=== PATIENT | female | born 1960 | race Caucasian/White ===

== ENCOUNTER 2017-06-01 16:31 | Inpatient (IN) | payer OTHER ==
[2017-06-01 18:14] VITALS: BMI 24.5
--- NOTE | 2017-06-01 20:28 | HP ---
CIWA Score - CIWA Score Nausea/Vomitin (vomiting x 3) Muscle Tremors: 4-Moderate,w/Arms Extend Anxiety: 4-Mod. Anxious/Guarded Agitation: 2 Paroxysmal Sweats: 3 Orientation: 0-Oriented Tacttile Disturbances: 0-None Auditory Disturbances: 0-None Visual Disturbances: 0-None Headache: 3-Moderate CIWA-Ar Total Score: 19 Admission ROS BHS - HPI Chief Complaint: Alcohol withdrawal symptoms Allergies/Adverse Reactions: Allergies Allergy/AdvReac Type Severity Reaction Status Date / Time No Known Allergies Allergy Verified 06/01/17 20:21 History of Present Illness: 57 years old female with a long history of alcohol dependence is admitted to detox. Patient states that he has never been in detox and reports insignificant period of sobriety. She has medical history of COPD, asthma, anemia, seizure, HTN, anxiety and depression. She reports suicide attempt at 30 years old but denies suicidal ideation at this time. Patient states, "my goal is to be sober and productive." Exam Limitations: No Limitations - Ebola screening Have you traveled outside of the country in the last 21 days: No Have you had contact with anyone from an Ebola affected area: No Have you been sick,other than usual withdrawal symptoms: No Do you have a fever: No - Review of Systems Constitutional: Chills, Diaphoresis, Loss of Appetite, Night Sweats, Changes in sleep, Weakness EENT: reports: Nose Congestion, Sinus Pressure Respiratory: reports: Cough (Non productive) Cardiac: reports: No Symptoms Reported GI: reports: Diarrhea (x 5), Poor Appetite, Vomiting (x 3) : reports: No Symptoms Reported Musculoskeletal: reports: Muscle Pain, Muscle Weakness Integumentary: reports: Dryness, Flushing, Sweating Endocrine: reports: No Symptoms Reported Hematology: reports: Anemia Psychiatric: reports: Orientated x3, Agitated, Anxious, Depressed Other Systems: Reviewed and Negative Patient History - Patient Medical History Hx Anemia: Yes Hx Asthma: Yes Hx Chronic Obstructive Pulmonary Disease (COPD): Yes Hx Cancer: No Hx Cardiac Disorders: No Hx Congestive Heart Failure: No Hx Hypertension: Yes Hx Hypercholesterolemia: No Hx Pacemaker: No HX Cerebrovascular Accident: No Hx Seizures: Yes (YEAR 2001) Hx Diabetes: No Hx Gastrointestinal Disorders: No Hx Liver Disease: No Hx Genitourinary Disorders: No Hx Sexually Transmitted Disorders: No Hx Renal Disease (ESRD): No Hx Thyroid Disease: No Hx Human Immunodeficiency Virus (HIV): No (Negative 2016) Hx Hepatitis C: No (Negative 2016) Hx Depression: Yes Hx Suicide Attempt: Yes (AT AGE OF 30) Hx Bipolar Disorder: No Hx Schizophrenia: No - Patient Surgical History Past Surgical History: Yes Hx Neurologic Surgery: No Hx Cataract Extraction: No Hx Cardiac Surgery: No Hx Lung Surgery: No Hx Breast Surgery: No Hx Breast Biopsy: No Hx Abdominal Surgery: No Hx Appendectomy: Yes (at 30 years old) Hx Cholecystectomy: Yes (1994) Hx Genitourinary Surgery: No Hx Section: Yes (1982) Hx Orthopedic Surgery: No Hx Hysterectomy: No Anesthesia Reaction: No - PPD History Previous Implant?: No Implanted On Prior R Admission?: No PPD to be Administered?: Yes - Reproductive History Patient is a Female of Child Bearing Age (11 -55 yrs old): Yes LMP comment: Last menstrual Period was 15 years ago Patient : No - Smoking Cessation Smoking history: Current every day smoker Have you smoked in the past 12 months: Yes Aproximately how many cigarettes per day: 1 Hx Chewing Tobacco Use: No Initiated information on smoking cessation: Yes 'Breaking Loose' booklet given: 06/01/17 - Substance & Tx. History Hx Alcohol Use: Yes Hx Substance Use: No Hx Substance Use Treatment: No - Substances Abused Alcohol Route: Oral Frequency: Daily Amount used: 4 PINT OF VODKA Age of first use: 9 Date of Last Use: 06/01/17 Family Disease History - Family Disease History Family Disease History: Heart Disease: Father (SKIN CA), Mother (COLON CA), Brother, CA: Father, Mother, Respiratory: Grandparent ( G/F COPD, LUNG CA - ) Admission Physical Exam S - Vital Signs Vital Signs: Vital Signs - 24 hr 06/01/17 18:10 Temperature 96.7 F L Pulse Rate 122 H Respiratory 19 Rate Blood Pressure 133/74 - Physical General Appearance: Yes: Moderate Distress, Tremorous, Irritable, Sweating, Anxious HEENTM: Yes: BUFFY, Nasal Congestion, Sinus Tenderness Respiratory: Yes: No Respiratory Distress, Wheezing Neck: Yes: Supple Breast: Yes: Breast Exam Deferred Cardiology: Yes: Regular Rhythm, Regular Rate, S1, S2 Abdominal: Yes: Within Normal Limits Genitourinary: Yes: Within Normal Limits Back: Yes: Normal Inspection Musculoskeletal: Yes: Muscle Pain, Muscle weakness Extremities: Yes: Tremors Neurological: Yes: Within Normal Limits, Alert, Normal Response Integumentary: Yes: Warm Lymphatic: Yes: Within Normal Limits - Diagnostic (1) Alcohol dependence with uncomplicated withdrawal Current Visit: Yes Status: Chronic (2) COPD (chronic obstructive pulmonary disease) Current Visit: Yes Status: Chronic (3) Asthma Current Visit: Yes Status: Chronic (4) HTN (hypertension) Current Visit: Yes Status: Chronic (5) Anemia Current Visit: Yes Status: Chronic Qualifiers: Anemia type: iron deficiency (6) Anxiety Current Visit: Yes Status: Chronic (7) Depression Current Visit: Yes Status: Acute Qualifiers: Depression Type: unspecified Qualified Code(s): F32.9 - Major depressive disorder, single episode, unspecified (8) Seizure Current Visit: Yes Status: Chronic (9) Nicotine dependence Current Visit: Yes Status: Chronic Cleared for Admission S - Detox or Rehab [facility] Level of Care: Medically Managed Detox Regimen/Protocol: Librium S Breath Alcohol Content Breath Alcohol Content: 0 Urine Pregancy Test - Result Urine Test Results: Negative- NO Line Present Urine Drug Screen - Results Drug Screen Negative: No Urine Drug Screen Results: BZO-Benzodiazepines
[2017-06-01] MEDS ORDERED: IBUPROFEN 400 MG TABLET (FP) PO PRN (20:46)
[2017-06-01] MEDS ORDERED: ACETAMINOPHEN 325 MG TABLET (FP) PO PRN (20:46)
[2017-06-01] MEDS ORDERED: MENTHOL/PHENOL 1 EACH UD MM PRN (20:46)
[2017-06-01] MEDS ORDERED: MAGNESIUM CITRATE 300 ML BOTTLE PO PRN (20:46)
[2017-06-01] MEDS ORDERED: P-EPHED 60MG/TRIPROLIDI 2.5MG TABLET PO PRN (20:46)
[2017-06-01] MEDS ORDERED: LOPERAMIDE HCL 2 MG CAPSULE PO PRN (20:46)
[2017-06-01] MEDS ORDERED: MAGNESIUM HYDROX 2400MG/30ML ORAL SUSPENSION 30 ML CUP PO PRN (20:46)
[2017-06-01] MEDS ORDERED: NICOTINE POLACRILEX 2 MG GUM BC PRN (20:46)
[2017-06-01] MEDS ORDERED: guaiFENesin/D-METHORPHAN HB 10 ML UNIT-DOSE CUPS PO PRN (20:46)
[2017-06-01] MEDS ORDERED: MAG HYDROX/AL HYDROX/SIMETH 30 ML UNIT-DOSE CUP PO PRN (20:46)
[2017-06-01] MEDS ORDERED: chlordiazePOXIDE HCL 25 MG CAPSULE PO PRN (20:46)
[2017-06-01] MEDS: chlordiazePOXIDE HCL 25 MG CAPSULE PO SCH (22:12)
[2017-06-01] MEDS: THIAMINE HCL 100 MG TABLET (FP) PO SCH (22:13)
[2017-06-02 00:27] LABS: URINE APPEARANCE CLOUDY; URINE BLOOD 1+ (NEGATIVE); URINE COLOR AMBER; URINE GLUCOSE (UA) 1+ (NEGATIVE); URINE KETONE 1+ (NEGATIVE); URINE LEUK ESTERASE NEGATIVE (NEGATIVE); URINE NITRITE NEGATIVE (NEGATIVE); URINE UROBILINOGEN 4.0 E.U/dl mg/dL (0.2-1.0)
[2017-06-02 00:30] LABS: URINE PROTEIN 2+ (NEGATIVE)
[2017-06-02 00:38] LABS: EPI CELLS MANY /HPF (FEW); URINE BACTERIA RARE /hpf (NONE SEEN); URINE HYALINE CAST 129 /lpf; URINE MUCUS MANY
[2017-06-02] MEDS: chlordiazePOXIDE HCL 25 MG CAPSULE PO SCH ×4 (06:37→22:10)
--- NOTE | 2017-06-02 08:01 | CONSULT ---
[facility] Psychiatric Consult - Data Date of interview: 06/02/17 Admission source: [facility] Identifying data: This is 57 years old female , single, mother of four, livinmg at [employer] , on PA, with no psychiatric hospitalization history, intoxicated with: Alcohol, and Nicotine, urine positive for Benzodiazepins as well. Substance Abuse History: - Smoking Cessation. Smoking history: Current every day smoker. Have you smoked in the past 12 months: Yes. Aproximately how many cigarettes per day: 1. Hx Chewing Tobacco Use: No. Initiated information on smoking cessation: Yes. 'Breaking Loose' booklet given: 06/01/17. - Substance & Tx. History. Hx Alcohol Use: Yes. Hx Substance Use: No. Hx Substance Use Treatment: No. - Substances Abused. Alcohol. Route: Oral. Frequency: Daily. Amount used: 4 PINT OF VODKA. Age of first use: 9. Date of Last Use: 06/01/17 Medical History: History o0f both extremities fracture, using cane , COPD, Asthma, HTN, Anemia history, seizure history Psychiatric History: Denies past p-sychiatric history, as per [id number] anxietyt and depression issues in the past Physical/Sexual Abuse/Trauma History: Denies Additional Comment: Observation. Detox Unit Care Protocol Mental Status Exam - Mental Status Exam Alert and Oriented to: Person Cognitive Function: Fair Patient Appearance: Unkempt Mood: Anxious Affect: Mood Congruent Patient Behavior: Cooperative Speech Pattern: Appropriate Voice Loudness: Mildly Soft/Quiet Thought Process: Circumstantial Thought Disorder: Being Controlled Hallucinations: Denies Suicidal Ideation: Denies Homicidal Ideation: Denies Insight/Judgement: Fair Sleep: Difficulty falling asleep Appetite: Weight gain Muscle strength/Tone: Moderate Hypotonicity Gait/Station: Deferred Additional Comments: Observation. Detox Unit Care Protocol Psychiatric Findings - Problem List ([place] 1, 2,3) (1) Drug-induced mood disorder Current Visit: Yes Status: Acute (2) Alcohol dependence with uncomplicated withdrawal Current Visit: Yes Status: Suspected (3) Anxiety Current Visit: Yes Status: Chronic (4) Nicotine dependence Current Visit: Yes Status: Chronic - Initial Treatment Plan Initial Treatment Plan: Observation. Detox Unit Care Protocol
--- NOTE | 2017-06-02 08:04 | EKG ---
Test Reason : Blood Pressure : / mmHG Vent. Rate : 111 BPM Atrial Rate : 111 BPM P-R Int : 140 ms QRS Dur : 082 ms QT Int : 364 ms P-R-T Axes : 062 064 054 degrees QTc Int : 495 ms SINUS TACHYCARDIA NONSPECIFIC ST ABNORMALITY ABNORMAL ECG NO PREVIOUS ECGS AVAILABLE Confirmed by ALEKSEY CHRIS, JOELLE ([id number]) on 06/02/2017 8:03:53 AM Referred By: Confirmed By:JOELLE RYDER MD
[2017-06-02 10:04] LABS: HEMATOCRIT 43.7 % (32.4-45.2); HEMOGLOBIN 14.4 GM/dL (10.7-15.3); MCH 33.1 pg (25.7-33.7); MCHC 32.9 g/dl (32.0-36.0); MEAN CELL VOLUME 100.6 fl (80-96); MEAN PLT VOLUME 11.6 fl (7.5-11.1); PLATELET COUNT 108 K/MM3 (134-434); RBC 4.34 M/mm3 (3.60-5.2); RDW 16.6 % (11.6-15.6); WHITE BLOOD COUNT 10.1 K/mm3 (4.0-10.0)
[2017-06-02 10:18] LABS: CHLORIDE 99 mmol/L (98-107); SODIUM 138 mmol/L (136-145)
[2017-06-02] MEDS: NICOTINE 14 MG/24 HOURS TOPICAL PATCH TD SCH (10:23)
[2017-06-02] MEDS: PRENATAL VITAMINS W/ FOLIC ACID TABLET (FP) PO SCH (10:23)
[2017-06-02] MEDS: ALBUTEROL SO4 18 GM HFA INHALER IH PRN ×2 (10:25→21:33)
[2017-06-02 10:42] LABS: ALBUMIN 3.2 g/dl (3.4-5.0); ALK PHOS 97 U/L (45-117); ANION GAP 14 (8-16); BILIRUBIN,TOTAL 0.8 mg/dL (0.2-1.0); BLOOD UREA NITROGEN 16 mg/dL (7-18); CALCIUM 9.1 mg/dL (8.5-10.1); CO2 25 mmol/L (21-32); GLUCOSE,RANDOM 153 mg/dL (74-106); SGOT/AST 17 U/L (15-37); SGPT/ALT 28 U/L (12-78); TOT PROT 7.1 g/dl (6.4-8.2)
--- NOTE | 2017-06-02 10:47 | PN ---
S CIWA - CIWA Score Nausea/Vomitin Muscle Tremors: 3 Anxiety: 3 Agitation: 2 Paroxysmal Sweats: 1-Minimal Palms Moist Orientation: 0-Oriented Tacttile Disturbances: 1-Very Mild Itch/Numbness Auditory Disturbances: 1-Very Mild Visual Disturbances: 0-None Headache: 2-Mild CIWA-Ar Total Score: 16 BHS Progress Note (SOAP) Subjective: ALERT,IRRITABLE,ANXIOUS,INTERRUPTED SLEEP,TREMOR Objective: 06/02/17 10:45 Vital Signs Temperature 97.9 F 06/02/17 10:00 Pulse Rate 108 H 06/02/17 10:00 Respiratory Rate 18 06/02/17 10:00 Blood Pressure 106/50 06/02/17 10:00 O2 Sat by Pulse Oximetry (%) EKG SINUS TACHYCARDIA 111/MIN NO CHEST PAIN,NO SOB,NO DIZZINESS 06/02/17 10:46 Laboratory Last Values WBC 10.1 K/mm3 (4.0-10.0) H 06/02/17 07:00 RBC 4.34 M/mm3 (3.60-5.2) 06/02/17 07:00 Hgb 14.4 GM/dL (10.7-15.3) 06/02/17 07:00 Hct 43.7 % (32.4-45.2) 06/02/17 07:00 MCV 100.6 fl (80-96) H 06/02/17 07:00 MCH 33.1 pg (25.7-33.7) 06/02/17 07:00 MCHC 32.9 g/dl (32.0-36.0) 06/02/17 07:00 RDW 16.6 % (11.6-15.6) H 06/02/17 07:00 Plt Count 108 K/MM3 (134-434) L 06/02/17 07:00 MPV 11.6 fl (7.5-11.1) H 06/02/17 07:00 Urine Color Windy 06/01/17 20:00 Urine Appearance Cloudy 06/01/17 20:00 Urine pH 5.0 (5.0-8.0) 06/01/17 20:00 Ur Specific [place] 1.028 (1.001-1.035) 06/01/17 20:00 Urine Protein 2+ (NEGATIVE) H 06/01/17 20:00 Urine Glucose (UA) 1+ (NEGATIVE) H 06/01/17 20:00 Urine Ketones 1+ (NEGATIVE) H 06/01/17 20:00 Urine Blood 1+ (NEGATIVE) H 06/01/17 20:00 Urine Nitrite Negative (NEGATIVE) 06/01/17 20:00 Urine Bilirubin 4.0 (NEGATIVE) 06/01/17 20:00 Urine Urobilinogen 4.0 e.u/dl mg/dL (0.2-1.0) H 06/01/17 20:00 Ur Leukocyte Esterase Negative (NEGATIVE) 06/01/17 20:00 Urine WBC (Auto) 6 /hpf (3-5) 06/01/17 20:00 Urine RBC (Auto) 4 /hpf (0-3) 06/01/17 20:00 Ur Epithelial Cells Many /HPF (FEW) 06/01/17 20:00 Urine Bacteria Rare /hpf (NONE SEEN) 06/01/17 20:00 Hyaline Casts 129 /lpf 06/01/17 20:00 Urine Mucus Many 06/01/17 20:00 06/02/17 10:46 LAB PENDING Assessment: 06/02/17 10:46 WITHDRAWAL SYMPTOM Plan: CONTINUE DETOX,REPEAT UA
[2017-06-02 10:51] LABS: POTASSIUM 2.9 mmol/L (3.5-5.1)
[2017-06-02] MEDS ORDERED: POTASSIUM CHLORIDE ORAL LIQUID 20 MEQ/15 ML PO ONE (10:59)
--- NOTE | 2017-06-02 10:59 | PN ---
[facility] Progress Note Note: Laboratory Last Values WBC 10.1 K/mm3 (4.0-10.0) H 06/02/17 07:00 RBC 4.34 M/mm3 (3.60-5.2) 06/02/17 07:00 Hgb 14.4 GM/dL (10.7-15.3) 06/02/17 07:00 Hct 43.7 % (32.4-45.2) 06/02/17 07:00 MCV 100.6 fl (80-96) H 06/02/17 07:00 MCH 33.1 pg (25.7-33.7) 06/02/17 07:00 MCHC 32.9 g/dl (32.0-36.0) 06/02/17 07:00 RDW 16.6 % (11.6-15.6) H 06/02/17 07:00 Plt Count 108 K/MM3 (134-434) L 06/02/17 07:00 MPV 11.6 fl (7.5-11.1) H 06/02/17 07:00 Sodium 138 mmol/L (136-145) 06/02/17 07:00 Potassium 2.9 mmol/L (3.5-5.1) L* 06/02/17 07:00 Chloride 99 mmol/L (98-107) 06/02/17 07:00 Carbon Dioxide 25 mmol/L (21-32) 06/02/17 07:00 Anion Gap 14 (8-16) 06/02/17 07:00 BUN 16 mg/dL (7-18) 06/02/17 07:00 Creatinine 1.0 mg/dL (0.55-1.02) 06/02/17 07:00 Creat Clearance w eGFR 57.15 (>60) 06/02/17 07:00 Random Glucose 153 mg/dL (74-106) H 06/02/17 07:00 Calcium 9.1 mg/dL (8.5-10.1) 06/02/17 07:00 Total Bilirubin 0.8 mg/dL (0.2-1.0) 06/02/17 07:00 AST 17 U/L (15-37) 06/02/17 07:00 ALT 28 U/L (12-78) 06/02/17 07:00 Alkaline Phosphatase 97 U/L (45-117) 06/02/17 07:00 Total Protein 7.1 g/dl (6.4-8.2) 06/02/17 07:00 Albumin 3.2 g/dl (3.4-5.0) L 06/02/17 07:00 Urine Color Windy 06/01/17 20:00 Urine Appearance Cloudy 06/01/17 20:00 Urine pH 5.0 (5.0-8.0) 06/01/17 20:00 Ur Specific [place] 1.028 (1.001-1.035) 06/01/17 20:00 Urine Protein 2+ (NEGATIVE) H 06/01/17 20:00 Urine Glucose (UA) 1+ (NEGATIVE) H 06/01/17 20:00 Urine Ketones 1+ (NEGATIVE) H 06/01/17 20:00 Urine Blood 1+ (NEGATIVE) H 06/01/17 20:00 Urine Nitrite Negative (NEGATIVE) 06/01/17 20:00 Urine Bilirubin 4.0 (NEGATIVE) 06/01/17 20:00 Urine Urobilinogen 4.0 e.u/dl mg/dL (0.2-1.0) H 06/01/17 20:00 Ur Leukocyte Esterase Negative (NEGATIVE) 06/01/17 20:00 Urine WBC (Auto) 6 /hpf (3-5) 06/01/17 20:00 Urine RBC (Auto) 4 /hpf (0-3) 06/01/17 20:00 Ur Epithelial Cells Many /HPF (FEW) 06/01/17 20:00 Urine Bacteria Rare /hpf (NONE SEEN) 06/01/17 20:00 Hyaline Casts 129 /lpf 06/01/17 20:00 Urine Mucus Many 06/01/17 20:00 HYPOKALEMIA K IS 2.9 KCL LIQUID 20 MEQ PO NOW THEN BID REPEAT CMP IN AM BGM MONITORING
[2017-06-02] MEDS ORDERED: ALBUTEROL SO4 2.5/IPRATROPIUM 0.5 INH SOL 3 ML VIAL.NEB. NEB PRN (11:02)
[2017-06-02] MEDS ORDERED: ALBUTEROL SO4 0.083% IH SOL 2.5 MG/3 ML VIAL.NEB. NEB PRN (11:21)
[2017-06-02] MEDS: TIOTROPIUM BROMIDE 18 MCG/INH (DEVICE W/ 5 CAPSULES) IH SCH (11:26)
[2017-06-02] MEDS ORDERED: FLU VACCINE QUAD 60 MCG/0.5 ML (MDV 17-18) IM ONE (12:00)
[2017-06-02] MEDS: THIAMINE HCL 100 MG TABLET (FP) PO SCH (22:10)
[2017-06-02] MEDS: POTASSIUM CHLORIDE ORAL LIQUID 20 MEQ/15 ML PO SCH (22:11)
[2017-06-03] MEDS: chlordiazePOXIDE HCL 25 MG CAPSULE PO SCH ×3 (06:00→18:41)
[2017-06-03] MEDS: NICOTINE 14 MG/24 HOURS TOPICAL PATCH TD SCH (10:12)
[2017-06-03] MEDS: POTASSIUM CHLORIDE ORAL LIQUID 20 MEQ/15 ML PO SCH ×2 (10:12→22:15)
[2017-06-03] MEDS: PRENATAL VITAMINS W/ FOLIC ACID TABLET (FP) PO SCH (10:12)
[2017-06-03] MEDS: TIOTROPIUM BROMIDE 18 MCG/INH (DEVICE W/ 5 CAPSULES) IH SCH (10:13)
[2017-06-03] MEDS: ALBUTEROL SO4 18 GM HFA INHALER IH PRN ×2 (10:13→22:17)
--- NOTE | 2017-06-03 10:44 | PN ---
S CIWA - CIWA Score Nausea/Vomitin Muscle Tremors: 3 Anxiety: 3 Agitation: 2 Paroxysmal Sweats: 1-Minimal Palms Moist Orientation: 0-Oriented Tacttile Disturbances: 1-Very Mild Itch/Numbness Auditory Disturbances: 1-Very Mild Visual Disturbances: 0-None Headache: 2-Mild CIWA-Ar Total Score: 16 BHS Progress Note (SOAP) Subjective: ALERT,IRRITABLE,ANXIOUS,INTERRUPTED SLEEP,TREMOR Objective: 06/03/17 10:43 Vital Signs Temperature 98.1 F 06/03/17 06:00 Pulse Rate 62 06/03/17 06:00 Respiratory Rate 16 06/03/17 06:00 Blood Pressure 153/84 06/03/17 06:00 O2 Sat by Pulse Oximetry (%) 06/03/17 10:45 Laboratory Last Values WBC 10.1 K/mm3 (4.0-10.0) H 06/02/17 07:00 RBC 4.34 M/mm3 (3.60-5.2) 06/02/17 07:00 Hgb 14.4 GM/dL (10.7-15.3) 06/02/17 07:00 Hct 43.7 % (32.4-45.2) 06/02/17 07:00 MCV 100.6 fl (80-96) H 06/02/17 07:00 MCH 33.1 pg (25.7-33.7) 06/02/17 07:00 MCHC 32.9 g/dl (32.0-36.0) 06/02/17 07:00 RDW 16.6 % (11.6-15.6) H 06/02/17 07:00 Plt Count 108 K/MM3 (134-434) L 06/02/17 07:00 MPV 11.6 fl (7.5-11.1) H 06/02/17 07:00 Sodium 138 mmol/L (136-145) 06/02/17 07:00 Potassium 2.9 mmol/L (3.5-5.1) L* 06/02/17 07:00 Chloride 99 mmol/L (98-107) 06/02/17 07:00 Carbon Dioxide 25 mmol/L (21-32) 06/02/17 07:00 Anion Gap 14 (8-16) 06/02/17 07:00 BUN 16 mg/dL (7-18) 06/02/17 07:00 Creatinine 1.0 mg/dL (0.55-1.02) 06/02/17 07:00 Creat Clearance w eGFR 57.15 (>60) 06/02/17 07:00 Random Glucose 153 mg/dL (74-106) H 06/02/17 07:00 Calcium 9.1 mg/dL (8.5-10.1) 06/02/17 07:00 Total Bilirubin 0.8 mg/dL (0.2-1.0) 06/02/17 07:00 AST 17 U/L (15-37) 06/02/17 07:00 ALT 28 U/L (12-78) 06/02/17 07:00 Alkaline Phosphatase 97 U/L (45-117) 06/02/17 07:00 Total Protein 7.1 g/dl (6.4-8.2) 06/02/17 07:00 Albumin 3.2 g/dl (3.4-5.0) L 06/02/17 07:00 Urine Color Windy 06/01/17 20:00 Urine Appearance Cloudy 06/01/17 20:00 Urine pH 5.0 (5.0-8.0) 06/01/17 20:00 Ur Specific [place] 1.028 (1.001-1.035) 06/01/17 20:00 Urine Protein 2+ (NEGATIVE) H 06/01/17 20:00 Urine Glucose (UA) 1+ (NEGATIVE) H 06/01/17 20:00 Urine Ketones 1+ (NEGATIVE) H 06/01/17 20:00 Urine Blood 1+ (NEGATIVE) H 06/01/17 20:00 Urine Nitrite Negative (NEGATIVE) 06/01/17 20:00 Urine Bilirubin 4.0 (NEGATIVE) 06/01/17 20:00 Urine Urobilinogen 4.0 e.u/dl mg/dL (0.2-1.0) H 06/01/17 20:00 Ur Leukocyte Esterase Negative (NEGATIVE) 06/01/17 20:00 Urine WBC (Auto) 6 /hpf (3-5) 06/01/17 20:00 Urine RBC (Auto) 4 /hpf (0-3) 06/01/17 20:00 Ur Epithelial Cells Many /HPF (FEW) 06/01/17 20:00 Urine Bacteria Rare /hpf (NONE SEEN) 06/01/17 20:00 Hyaline Casts 129 /lpf 06/01/17 20:00 Urine Mucus Many 06/01/17 20:00 RPR Titer Nonreactive (NONREACTIVE) 06/02/17 07:00 Hepatitis C Antibody <0.1 s/co ratio (0.0-0.9) 06/01/17 07:00 Assessment: 06/03/17 10:46 WITHDRAWAL SYMPTOM Plan: CONTINUE DETOX,RECEIVING KCL 20 MEQ PO BID FOR HYPOKALEMIA, BGM MONITORING ,INITIAL GLUCOSE 153
--- NOTE | 2017-06-03 11:06 | EKG ---
Test Reason : Blood Pressure : / mmHG Vent. Rate : 101 BPM Atrial Rate : 101 BPM P-R Int : 136 ms QRS Dur : 084 ms QT Int : 430 ms P-R-T Axes : 062 065 049 degrees QTc Int : 557 ms SINUS TACHYCARDIA PROLONGED QT ABNORMAL ECG WHEN COMPARED WITH ECG OF 02-JUN-2017 06:32, NO SIGNIFICANT CHANGE WAS FOUND Confirmed by ASHLEY GUARDADO MD ([id number]) on 06/03/2017 11:06:23 AM Referred By: Confirmed By:ASHLEY GUARDADO MD
[2017-06-03 21:45] VITALS: TEMP 97.9
[2017-06-03] MEDS: THIAMINE HCL 100 MG TABLET (FP) PO SCH (22:17)
[2017-06-03] MEDS: chlordiazePOXIDE 5 MG CAPSULE PO SCH (22:18)
[2017-06-04] MEDS: chlordiazePOXIDE 5 MG CAPSULE PO SCH (05:51)
[2017-06-04 09:54] VITALS: BP 127/54; PULSE 97
[2017-06-04 10:16] LABS: CHLORIDE 104 mmol/L (98-107); POTASSIUM 3.9 mmol/L (3.5-5.1); SODIUM 138 mmol/L (136-145)
[2017-06-04 10:32] LABS: ALK PHOS 76 U/L (45-117); ANION GAP 7 (8-16); BILIRUBIN,TOTAL 0.6 mg/dL (0.2-1.0); BLOOD UREA NITROGEN 13 mg/dL (7-18); CO2 27 mmol/L (21-32); CREATININE 0.6 mg/dL (0.55-1.02); GLUCOSE,RANDOM 104 mg/dL (74-106); SGOT/AST 14 U/L (15-37); SGPT/ALT 21 U/L (12-78); TOT PROT 6.4 g/dl (6.4-8.2)
--- NOTE | 2017-06-04 10:47 | PN ---
S Progress Note (SOAP) Subjective: ALERT,INTERRUPTED SLEEP,ANXIOUS Objective: 06/04/17 10:43 Vital Signs Temperature 97.9 F 06/04/17 09:53 Pulse Rate 97 H 06/04/17 09:53 Respiratory Rate 20 06/04/17 09:53 Blood Pressure 127/54 06/04/17 09:53 O2 Sat by Pulse Oximetry (%) Laboratory Last Values WBC 10.1 K/mm3 (4.0-10.0) H 06/02/17 07:00 RBC 4.34 M/mm3 (3.60-5.2) 06/02/17 07:00 Hgb 14.4 GM/dL (10.7-15.3) 06/02/17 07:00 Hct 43.7 % (32.4-45.2) 06/02/17 07:00 MCV 100.6 fl (80-96) H 06/02/17 07:00 MCH 33.1 pg (25.7-33.7) 06/02/17 07:00 MCHC 32.9 g/dl (32.0-36.0) 06/02/17 07:00 RDW 16.6 % (11.6-15.6) H 06/02/17 07:00 Plt Count 108 K/MM3 (134-434) L 06/02/17 07:00 MPV 11.6 fl (7.5-11.1) H 06/02/17 07:00 Sodium 138 mmol/L (136-145) 06/04/17 07:00 Potassium 3.9 mmol/L (3.5-5.1) 06/04/17 07:00 Chloride 104 mmol/L (98-107) 06/04/17 07:00 Carbon Dioxide 25 mmol/L (21-32) 06/02/17 07:00 Anion Gap 14 (8-16) 06/02/17 07:00 BUN 16 mg/dL (7-18) 06/02/17 07:00 Creatinine 1.0 mg/dL (0.55-1.02) 06/02/17 07:00 Creat Clearance w eGFR 57.15 (>60) 06/02/17 07:00 POC Glucometer 131 UNITS (80-120) 06/03/17 16:23 Random Glucose 153 mg/dL (74-106) H 06/02/17 07:00 Calcium 9.1 mg/dL (8.5-10.1) 06/02/17 07:00 Total Bilirubin 0.8 mg/dL (0.2-1.0) 06/02/17 07:00 AST 17 U/L (15-37) 06/02/17 07:00 ALT 28 U/L (12-78) 06/02/17 07:00 Alkaline Phosphatase 97 U/L (45-117) 06/02/17 07:00 Total Protein 7.1 g/dl (6.4-8.2) 06/02/17 07:00 Albumin 3.2 g/dl (3.4-5.0) L 06/02/17 07:00 Urine Color Windy 06/01/17 20:00 Urine Appearance Cloudy 06/01/17 20:00 Urine pH 5.0 (5.0-8.0) 06/01/17 20:00 Ur Specific [place] 1.028 (1.001-1.035) 06/01/17 20:00 Urine Protein 2+ (NEGATIVE) H 06/01/17 20:00 Urine Glucose (UA) 1+ (NEGATIVE) H 06/01/17 20:00 Urine Ketones 1+ (NEGATIVE) H 06/01/17 20:00 Urine Blood 1+ (NEGATIVE) H 06/01/17 20:00 Urine Nitrite Negative (NEGATIVE) 06/01/17 20:00 Urine Bilirubin 4.0 (NEGATIVE) 06/01/17 20:00 Urine Urobilinogen 4.0 e.u/dl mg/dL (0.2-1.0) H 06/01/17 20:00 Ur Leukocyte Esterase Negative (NEGATIVE) 06/01/17 20:00 Urine WBC (Auto) 6 /hpf (3-5) 06/01/17 20:00 Urine RBC (Auto) 4 /hpf (0-3) 06/01/17 20:00 Ur Epithelial Cells Many /HPF (FEW) 06/01/17 20:00 Urine Bacteria Rare /hpf (NONE SEEN) 06/01/17 20:00 Hyaline Casts 129 /lpf 06/01/17 20:00 Urine Mucus Many 06/01/17 20:00 RPR Titer Nonreactive (NONREACTIVE) 06/02/17 07:00 Hepatitis C Antibody <0.1 s/co ratio (0.0-0.9) 06/01/17 07:00 Assessment: 06/04/17 10:46 WITHDRAWAL SYMPTOM Plan: CONTINUE DETOX,K IS 3.9,BGM 131,
--- NOTE | 2017-06-04 10:50 | PN ---
S Progress Note Note: PATIENT DID NOT WANT TO COMPLETE TREATMENT,SIGNED RELEASE AMA,WILL SEE PMD FOR MEDICAL FOLLOW UP
--- NOTE | 2017-06-04 10:55 | DS ---
[facility] Detox Discharge Summary Admission Date: 06/01/17 Discharge Date: 06/04/17 - History Present History: Alcohol Dependence Additional Comments: PATIENT DID NOT WANT TO COMPLETE TREATMENT,SIGNEDTO SEE PMD FOR MEDICAL PROBLEM RELEASE AMA,SEEN BY COUNSELOR, Pertinent Past History: ASTHMA COPD HYPERTENSION ANXIETY DRUG INDUCED MOOD DISORDER - Physical Exam Results Vital Signs: Vital Signs Temperature 97.9 F 06/04/17 09:53 Pulse Rate 97 H 06/04/17 09:53 Respiratory Rate 20 06/04/17 09:53 Blood Pressure 127/54 06/04/17 09:53 O2 Sat by Pulse Oximetry (%) Pertinent Admission Physical Exam Findings: WITHDRAWAL SYMPTOM AND FINDING - Medication Discharge Medications: Ambulatory Orders NK [No Known Home Medication] 06/03/17 - Diagnosis (1) Alcohol dependence with uncomplicated withdrawal Current Visit: Yes Status: Suspected (2) Drug-induced mood disorder Current Visit: Yes Status: Acute (3) Anxiety Current Visit: Yes Status: Chronic (4) Asthma Current Visit: Yes Status: Chronic (5) COPD (chronic obstructive pulmonary disease) Current Visit: Yes Status: Chronic (6) HTN (hypertension) Current Visit: Yes Status: Chronic (7) Nicotine dependence Current Visit: Yes Status: Chronic (8) Seizure Current Visit: Yes Status: Chronic (9) Hypokalemia Current Visit: Yes Status: Acute - AMA Did Patient Leave Against Medical Advice: Yes
[2017-06-04] MEDS ORDERED: chlordiazePOXIDE HCL 10 MG CAPSULE PO SCH (23:00)
[2017-06-05] MEDS ORDERED: POTASSIUM CHLORIDE TABS 20 MEQ TABLET.ER (FP) PO SCH (10:00)
== END 2017-06-04 11:10 | disposition left against medical advice (07) | DRG 770 ==
LOC: YASAS 16:31 → Y6N 19:57
PROVIDERS: ADMIT Internal Medicine; ATTEND Internal Medicine
PROC: HZ2ZZZZ Detoxification Services for Substance Abuse Treatment (ICD-10-PCS; principal; 2017-06-01)
DX: F10.230 Alcohol dependence with withdrawal, uncomplicated (principal); F17.210 Nicotine dependence, cigarettes, uncomplicated; F19.24 Other psychoactive substance dependence with psychoactive substance-induced mood disorder; F41.9 Anxiety disorder, unspecified; J45.909 Unspecified asthma, uncomplicated; E87.6 Hypokalemia; Z86.69 Personal history of other diseases of the nervous system and sense organs; Z91.5 Personal history of self-harm
CPT/HCPCS: 36415; 80053; 81003; 81015; 82962; 85027; 86593; 86803; 93005; 93010